=== PATIENT | male | born 1990 | race Caucasian/White ===

== ENCOUNTER 2020-05-14 16:11 | Outpatient (REF) | payer OTHER, SELFPAY | END 2020-05-14 16:12 | disposition home or self-care (01) | LOC: HO.LAB 16:11 | PROVIDERS: Visit Provider Internal Medicine | DX: Z20.828 Contact with and (suspected) exposure to other viral communicable diseases (principal) | CPT/HCPCS: C9803; U0003 ==

== ENCOUNTER 2020-08-16 07:57 | Emergency (ER) | payer OTHER, SELFPAY ==
[2020-08-16 08:07] VITALS: BP 130/85; PULSE 79; RESP 18; TEMP 36.7; O2SAT 100; BMI 21.7
[2020-08-16 08:39] VITALS: BP 125/74; PULSE 60; PULSE 77; RESP 16; TEMP 36.7; O2SAT 100
--- NOTE | 2020-08-16 08:45 | ED_ITS ---
HPI - General Adult General Chief complaint: ETOH/Substance Use Stated complaint: drug abise Time Seen by Provider: 08/16/20 08:34 Source: patient Mode of arrival: ambulatory Limitations: no limitations History of Present Illness HPI narrative: 29 yo male with opiate use disorder was at [place] for suboxone started using again stopped suboxone during that times states he last used heroin on Thursday and tried a dose of 8/2 suboxone this AM which was his old medication and now c/o body aches, n/v, diarrhea complaint: opiate abuse Onset (ago): hour(s) (6am) Severity: moderate Quality: aching Pain Consistency: constant Relieving factors: none Exacerbating factors: other (started after taking suboxone) Associated symptoms: fever/chills, loss of appetite, malaise, nausea/vomiting, weakness and other (diarhea) Treatments prior to arrival: other (8/2 suboxone 6am) Related Data Previous Rx's Medication Instructions Recorded ondansetron 4 mg PO Q8H PRN #20 tab 08/16/20 Allergies Allergy/AdvReac Type Severity Reaction Status Date / Time No Known Allergies Allergy Unverified 03/08/20 19:28 [No Known Allergies*] Review of Systems Review of Systems: Constitutional : No Weight loss, No Fever, pos Chills ENT/Mouth : No sore throat, No Rhinorrhea Eyes: No Swelling, No Redness Cardiovascular : No Chest Pain, No SOB, NoEdema Respiratory : No Cough, No Sputum, No Wheezing Gastrointestinal : Positive Nausea, Positive Vomiting, positive Diarrhea, no abdominal Pain, No Hematochezia, No Melena Genitourinary : No Dysuria, No Urinary Frequency, No Hematuria, No Urgency Musculoskeletal : No joint pain, pos Myalgias, No Joint Swelling Skin : No Skin Lesions, No rash Neuro : pos Weakness, No Numbness, No Dizziness, No Headache Psych : No Anxiety/Panic, No Depression Heme/Lymph: No Bruising, No Lymphadenopathy Endocrine : No Polyuria, No Polydipsia All other systems reviewed and are negative. [facility] Past Medical History Attestation statement: The following information was validated with the patient. Medical History Opiate abuse, episodic Social History Social History Alcohol intake: never Smoking Status: Never smoker Use of substances other than those prescribed or required for medical reasons: Yes Substance Use Type: Heroin and Marijuana Substance Use Frequency: Chronic Longstanding Advance Directives: Yes Advance Directives Information Provided: No Advance Directives on File: No Physical Exam Vital Signs: Vital Signs: Last Vital Signs Temp 98.1 F 08/16/20 08:39 Pulse 77 08/16/20 08:39 Resp 16 08/16/20 08:39 BP 125/74 08/16/20 08:39 Pulse Ox 100 08/16/20 08:39 Body Mass Index 21.7 Appearance: Alert. Oriented X3. No acute distress. Anxious Eyes: Pupils equal, round and reactive to light. ENT: Pharynx normal. Neck: Normal inspection. Neck supple. CVS: Normal heart rate and rhythm. Pulses normal. Respiratory: No respiratory distress. Breath sounds normal. Abdomen: Soft and nontender. Skin: Skin warm and dry. Normal skin color. Normal skin turgor. Extremities: No lower extremity edema. No calf ttp Neuro: Oriented X 3. No motor deficit. No sensory deficit. Course Course Course Narrative: patient now states he wants to leave Medical Decision Making MDM Narrative Medical decision making narrative: 29 yo male recent heroin relapse he states that he last used Thursday then self dosed with his own medication this AM 8/ suboxone at 6am since then reports chills, n/v, diarrhea, body aches which sounds like precipitated withdrawal, he is adamant he last used Thursday, will provide supportive medications, test for COVID and refer to recovery coaches if needed. Discharge Plan Discharge Clinical Impression: Opiate withdrawal Patient Disposition: Home, Self-Care Instructions: Narcotic Withdrawal (ED) Additional Instructions: return to ED for any worsening symptoms or concerns IF YOU STILL FEEL POORLY TONIGHT AND HAVE NOT USED HEROIN YOU CAN RETRY A DOSE OF SUBOXONE Prescriptions: New ondansetron 4 mg tablet,disintegrating 4 mg PO Q8H PRN (Reason: nausea and vomiting) Qty: 20 RF: 0 Print Language: Malawian
[2020-08-16] MEDS: Diphenoxylate/Atrop 2.5/0.025 TABLET 1 TAB PO (08:58)
[2020-08-16] MEDS: LORazepam 1 MG TABLET PO (08:59)
[2020-08-16 09:41] LABS: Influenza A PCR NEGATIVE (Negative); Influenza B PCR NEGATIVE (Negative); Resp Syncy Virus RNA Qual PCR NEGATIVE (Negative); SARS COV2 PCR INHOUSE NEGATIVE (Negative)
== END 2020-08-16 15:00 | disposition home or self-care (01) ==
PROVIDERS: Emergency Provider Emergency Medicine
DX: F11.13 Opioid abuse with withdrawal (principal); R11.2 Nausea with vomiting, unspecified; Z20.822 Contact with and (suspected) exposure to COVID-19; F12.90 Cannabis use, unspecified, uncomplicated
CPT/HCPCS: 0241U; 36415; 99283; 99285

== ENCOUNTER 2023-07-20 04:02 | Emergency (ER) | payer MEDICAID, SELFPAY ==
[2023-07-20 04:08] VITALS: BP 136/83; PULSE 98; RESP 17; TEMP 37.6; O2SAT 98
[2023-07-20 04:14] VITALS: BP 136/83; PULSE 98; RESP 17; TEMP 37.6; O2SAT 98; BMI 30.5
[2023-07-20 04:40] LABS: COVID-19 Test Negative (Negative); IDNOW Serial# 6674DD1D; IDNOW Serial# 9DB6401D; Influenza A Negative (Negative); Influenza B2 Negative (Negative)
--- NOTE | 2023-07-20 05:33 | ED_ITS ---
HPI - URI/Sore Throat General Chief Complaint: Upper Respiratory Symptoms Stated Complaint: gen med Time Seen by Provider: 07/20/23 05:23 Source: patient Mode of arrival: ambulatory Limitations: no limitations History of Present Illness HPI Narrative: 32-year-old male who presents emergency department for evaluation of flu-like symptoms x2 days patient states that he has a nonproductive cough,headache, nausea and fatigue. The patient's was diagnosed 3 days prior with acute influenza and the patient's concerned that he may also have influenza at this time. Related Data Previous Rx's Medication Instructions Recorded ondansetron 4 mg disintegrating 4 mg PO Q8H PRN nausea and 08/16/20 tablet vomiting #20 tabs ondansetron 4 mg disintegrating 4 mg PO Q6-8H PRN nausea and 07/20/23 tablet vomiting #14 tabs Allergies Allergy/AdvReac Type Severity Reaction Status Date / Time No Known Allergies Allergy Unverified 07/20/23 04:14 [No Known Allergies*] Review of Systems Review of Systems: Yes all other systems are reviewed and are negative [facility] Past Medical History [facility] Narrative: Social history: He denies tobacco and alcohol use. He does smoke marijuana. Medical History Opiate abuse, episodic Social History Social History Alcohol intake: never Smoked in Last 30 Days: No Use of substances other than those prescribed or required for medical reasons: Yes Substance Use Type: Marijuana Substance Use Frequency: Chronic Longstanding Advance Directives: No Advance Directives Information Provided: No Physical Exam Vital Signs: Vital Signs: Last Vital Signs Temp 99.6 F 07/20/23 04:14 Pulse 98 07/20/23 04:14 Resp 17 07/20/23 04:14 BP 136/83 07/20/23 04:14 Pulse Ox 98 07/20/23 04:14 O2 Del Method Room Air 07/20/23 04:14 BMI result Body Mass Index 30.5 Vital signs were normal Exam General: Awake, alert in no distress Head: Normocephalic, atraumatic EENT: PERRL, Lids normal, sclera normal, conjunctiva normal, nose normal , ears normal, throat without erythema or exudates Neck: Supple, no adenopathy, no trachea midline or C-spine tenderness Lung: breath sounds symmetric, no wheezing, rales or rhonchi Chest: symmetric movement, nontender Heart: regular rate and rhythm, normal S1, S2 no murmurs or rubs Abdomen: soft, non-tender, nondistended, normal bowel sounds Back: no vertebral tenderness, no CVAT Extremities: no deformities, moves all extremities symmetrically Skin: no rashes, no lesion, normal color and warmth Neuro: Awake, alert, oriented, normal speech, cranial nerves intact, moves all extremities symmetrically Psych: Pleasant, cooperative Medical Decision Making Medical Decision Making [facility] Narrative: 32-year-old male who presents emergency department for evaluation of 2 days of URI/viral-like symptoms. Patient's vital signs were normal. Physical examination was unremarkable. Differential diagnosis includes was not limited to viral URI, bronchitis, viral syndrome, COVID-19, influenza 05:39 My interpretation patient's laboratory evaluation is as follows: COVID-19, influenza were negative Patient was advised to take Tylenol and ibuprofen for pain and for fever. He was prescribed Zofran ODT 4 mg every 6 hours as needed for nausea He was given printed and verbal instructions discharged home. He was also given a work note. Lab Data [facility] Lab Attestation statement: I reviewed the patient's lab results. Labs: Lab Results 07/20/23 Range/Units 04:15 COVID-19 (DAVE) Negative (Negative) COVID-19 Clin Com See Note Influenza Type A (BABAK) Negative (Negative) Influenza Type B (BABAK) Negative (Negative) Influenza A & B Note See Note Prescription Management I considered prescription management with: Other (Antiemetics) Discharge Plan Discharge Clinical Impression: Upper respiratory infection, Viral infection Patient Disposition: Home, Self-Care Instructions: Viral Syndrome (ED) Additional Instructions: Take ibuprofen 200 mg pills, 2 pills every 6 hours as needed for pain or fever. Take Tylenol (acetaminophen) 500 mg pills, 2 pills every 6 hours as needed for pain or fever. Take Zofran ODT 4 mg pills, 1 pill dissolved in your mouth every 8 hours as needed for nausea and vomiting. If you develop nausea and vomiting on a JADE diet (bananas, rice, applesauce, tea and toast) Follow-up with your doctor in 2 days. Please return to the emergency department if your symptoms get worse or if you develop any symptoms that are concerning to you. Please see the work note Prescriptions: New ondansetron 4 mg tablet,disintegrating 4 mg PO Q6-8H PRN (Reason: nausea and vomiting) Qty: 14 0RF No Action ondansetron 4 mg tablet,disintegrating 4 mg PO Q8H PRN (Reason: nausea and vomiting) Qty: 20 0RF Stand Alone Forms: Work/School Release
== END 2023-07-20 05:56 | disposition home or self-care (01) ==
PROVIDERS: Emergency Provider Emergency Medicine Emergency Medical Services
DX: J06.9 Acute upper respiratory infection, unspecified (principal); B34.9 Viral infection, unspecified; R05.9 Cough, unspecified; R51.9 Headache, unspecified; R11.0 Nausea; R53.83 Other fatigue; Z11.52 Encounter for screening for COVID-19
CPT/HCPCS: 87502; 87635; 99283; 99284